=== PATIENT | male | born 1995 | race Caucasian/White ===

== ENCOUNTER 2016-03-24 17:29 | Inpatient (IN) | payer OTHER ==
--- NOTE | 2016-03-24 17:36 | EDPHY ---
H & P Time Seen by Provider: 03/24/16 17:35 Constitutional: Initial Vital Signs Temperature (C) 36.8 C 03/24/16 17:29 Heart Rate 75 03/24/16 17:29 Respiratory Rate 16 03/24/16 17:29 Blood Pressure 136/91 H 03/24/16 17:29 O2 Sat (%) 96 03/24/16 17:29 O2 Delivery Mode Room Air Allergies/Adverse Reactions: No Known Allergies Allergy (Unverified 03/24/16 17:39) Home Medications: Medication Instructions Recorded Zoloft 03/24/16 Medical Decision Making ED Course/Re-evaluation: CHIEF COMPLAINT: Psychiatric evaluation HISTORY OF PRESENT ILLNESS: The patient is a 21 y/o arriving on an M1 hold with "increasingly intense suicidal ideation" from [facility]. He has a history of depression and has been on Zoloft for 5 years. He feels like he is cycling between happiness and depression for the last week. He says, "I've been feeling suicidal for the past week; it's been bipolar I think so I went to the psychiatric services at school;" "I feel super happy on top of the world then depressed-suicidal every." He denies previous suicidal attempts. He has a family history of depression but no history of bipolar disorder. REVIEW OF SYSTEMS: A 10 point review of systems was performed and is negative with the exception of the elements mentioned in the history of present illness. PHYSICAL EXAM: General Appearance: Alert, well hydrated, appropriate, and non-toxic appearing. Head: Atraumatic without scalp tenderness or obvious injury Eyes: Pupils equal, round, reactive to light and accommodation, EOMI, no trauma , no injection. Ears: Clear bilaterally, no perforation, normal landmarks Nose: Atraumatic, no rhinorrhea, clear. Throat: There is no erythema or exudates, no lesions, normal tonsils, mucus membranes moist. Neck: Supple, 2+ carotid upstroke, nontender, no lymphadenopathy. Respiratory: No retractions, no distress, no wheezes, and no accessory muscle use. Lungs are clear to auscultation bilaterally. Cardiovascular: Regular rate and rhythm, no murmurs, rubs, or gallops. Bilateral carotid, radial, dorsalis pedis, and posterior tibial pulses intact. Good capillary refill all extremities. Gastrointestinal: Abdomen is soft, nontender, non-distended, no masses, no rebound, no guarding, no peritoneal signs. Musculoskeletal: Normal active ROM of all extremities, atraumatic. Neurological: Alert, appropriate, and interactive. The patient has normal DTRs and non-focal cranial nerves, motor, sensory, and cerebellar exam. Skin: No rashes, good turgor, no nodules on palpation. 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 MEDICAL DECISION MAKING: Patient is in no acute distress and is hemodynamically stable. We are awaiting psychiatric team's evaluation. Patient has known history of depression and is here for evaluation. - Data Points Laboratory Results: Laboratory Results 03/24/16 17:33 03/24/16 17:33 03/24/16 03/24/16 17:37 17:33 WBC 7.75 10^3/uL (3.80-9.50) RBC 5.32 10^6/uL (4.40-6.38) Hgb 17.2 g/dL (13.7-17.5) Hct 47.7 % (40.0-51.0) MCV 89.7 fL (81.5-99.8) MCH 32.3 pg (27.9-34.1) MCHC 36.1 g/dL (32.4-36.7) RDW 11.0 L % (11.5-15.2) Plt Count 236 10^3/uL (150-400) MPV 9.4 fL (8.7-11.7) Neut % (Auto) 63.3 % (39.3-74.2) Lymph % (Auto) 25.7 % (15.0-45.0) [place] % (Auto) 9.0 % (4.5-13.0) Eos % (Auto) 1.3 % (0.6-7.6) Baso % (Auto) 0.4 % (0.3-1.7) Nucleat RBC Rel Count 0.0 % (0.0-0.2) Absolute Neuts (auto) 4.91 10^3/uL (1.70-6.50) Absolute Lymphs (auto) 1.99 10^3/uL (1.00-3.00) Absolute Monos (auto) 0.70 10^3/uL (0.30-0.80) Absolute Eos (auto) 0.10 10^3/uL (0.03-0.40) Absolute Basos (auto) 0.03 10^3/uL (0.02-0.10) Absolute Nucleated RBC 0.00 10^3/uL (0-0.01) Immature Gran % 0.3 % (0.0-1.1) Immature Gran # 0.02 10^3/uL (0.00-0.10) Sodium 140 mEq/L (134-144) Potassium 4.0 mEq/L (3.5-5.2) Chloride 101 mEq/L (97-110) Carbon Dioxide 27 mEq/l (22-31) Anion Gap 12 mEq/L (8-16) BUN 14 mg/dL (7-23) Creatinine 0.9 mg/dL (0.7-1.3) Estimated GFR > 60 Glucose 93 mg/dL (70-100) Calcium 9.3 mg/dL (8.5-10.4) Urine Opiates Screen NEGATIVE (NEGATIVE) Urine Barbiturates NEGATIVE (NEGATIVE) Ur Phencyclidine Scrn NEGATIVE (NEGATIVE) Ur Amphetamine Screen NEGATIVE (NEGATIVE) U Benzodiazepines Scrn NEGATIVE (NEGATIVE) Urine Cocaine Screen NEGATIVE (NEGATIVE) U Marijuana (THC) Screen NON-NEGATIVE H (NEGATIVE) Ethyl Alcohol < 10 mg/dL (0-10) Departure - Departure Clinical Impression: Suicidal ideation Depression Qualifiers: Depression Type: major depressive disorder Major depression recurrence: recurrent Active/Remission status: currently active Major depression episode severity: severe Condition: Fair Report Scribed for: Acosta Talley Report Scribed by: Hui Bailey Date of Report: 03/24/16 Time of Report: 18:53
[2016-03-24 17:42] LABS: % IMMATURE GRANULYOCYTES 0.3 % (0.0-1.1); ABSOLUTE IMMATURE GRANULOCYTES 0.02 10^3/uL (0.00-0.10); ADD DIFF? NO; ADD MORPH? NO; ADD SCAN? NO; ATYPICAL LYMPHOCYTE FLAG 10 (0-99); FRAGMENT RBC FLAG 0 (0-99); HEMATOCRIT 47.7 % (40.0-51.0); HEMOGLOBIN 17.2 g/dL (13.7-17.5); LEFT SHIFT FLG 0 (0-99); LIPEMIA HEMOLYSIS FLAG 90 (0-99); MEAN CELL HEMOGLOBIN 32.3 pg (27.9-34.1); MEAN CELL HEMOGLOBIN CONCENTR. 36.1 g/dL (32.4-36.7); MEAN CELL VOLUME 89.7 fL (81.5-99.8); MEAN PLATELET VOLUME 9.4 fL (8.7-11.7); PLATELET CLUMPS FLAG 0 (0-99); PLATELET COUNT 236 10^3/uL (150-400); RED BLOOD CELL COUNT 5.32 10^6/uL (4.40-6.38)
[2016-03-24 18:06] LABS: ANION GAP 12 mEq/L (8-16); CALCIUM 9.3 mg/dL (8.5-10.4); CARBON DIOXIDE 27 mEq/l (22-31); CHLORIDE 101 mEq/L (97-110); CREATININE 0.9 mg/dL (0.7-1.3); ETHANOL SERUM < 10 mg/dL (0-10); GLOMERULAR FILTRATION RATE > 60; GLUCOSE 93 mg/dL (70-100); SODIUM 140 mEq/L (134-144)
[2016-03-24 21:21] LABS: ALBUMIN 4.7 g/dL (3.5-5.0); BILIRUBIN,TOTAL 0.7 mg/dL (0.1-1.4); BILIRUBIN-CONJUGATED 0.2 mg/dL (0.0-0.5); BILIRUBIN-UNCONJUGATED 0.5 mg/dL (0.0-1.1); TOTAL PROTEIN 7.9 g/dL (6.3-8.2)
[2016-03-25] MEDS ORDERED: MAG HYDROX/AL HYDROX/SIMETH 30 ML UDCUP PO PRN (00:20)
[2016-03-25] MEDS ORDERED: ACETAMINOPHEN 325 MG TAB PO PRN (00:20)
[2016-03-25] MEDS ORDERED: MAGNESIUM HYDROXIDE 30 ML UDCUP PO PRN (00:20)
[2016-03-25] MEDS ORDERED: NICOTINE POLACRILEX 2 MG GUM B PRN (00:20)
[2016-03-25] MEDS ORDERED: LORazepam 0.5 MG TAB PO PRN (00:20)
[2016-03-25] MEDS: MELATONIN 3 MG TAB PO PRN ×2 (01:28→22:35)
--- NOTE | 2016-03-25 07:38 | PDGENHP ---
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 He take Zoloft. He has not been diagnosed with bipolar, but recently has been having more severe mood swings, sometimes sleeping only an hour at a time, and worries he may have bipolar disorder. While on a recent trip to [place], he developed suicidal ideation and had thoughts of jumping off a tall building. He did not act on these impulses because he knew the feeling would pass, but his suicidal thinking has persisted. He has no past medical hx other than depression. He is admitted to the behavioral health unit for inpatient psychiatric evaluation and stabilization History Information - Allergies/Home Medication List Allergies/Adverse Reactions: No Known Allergies Allergy (Unverified 03/24/16 17:39) Home Medications: Zoloft 03/24/16 [Last Taken Unknown] I have personally reviewed and updated: family history, medical history, social history, surgical history - Past Medical History Additional medical history: depression - Surgical History Reports: no pertinent surgical hx - Family History Positive for: non-pertinent Additional family history: Mom and dad are alive and healthy - Social History Smoking Status: Current some day smoker Alcohol Use: Occasionally Drug Use: Other (occasional marijuana and psychedelics (acid, mushrooms). Denies IVDA. 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80-9.50) 03/24/16 17:33 RBC 5.32 10^6/uL (4.40-6.38) 03/24/16 17:33 Hgb 17.2 g/dL (13.7-17.5) 03/24/16: Hct 47.7 % (40.0-51.0) 03/24/16: MCV 89.7 fL (81.5-99.8) 03/24/16 17: MCH 32.3 pg (27.9-34.1) 03/24/16: MCHC 36.1 g/dL (32.4-36.7) 03/24/16: RDW 11.0 % (11.5-15.2) L 03/24/16: Plt Count 236 10^3/uL (150-400) 03/24/16: MPV 9.4 fL (8.7-11.7) 03/24/16: Neut % (Auto) 63.3 % (39.3-74.2) 03/24/16: Lymph % (Auto) 25.7 % (15.0-45.0) 03/24/16: [place] % (Auto) 9.0 % (4.5-13.0) 03/24/16: Eos % (Auto) 1.3 % (0.6-7.6) 03/24/16: Baso % (Auto) 0.4 % (0.3-1.7) 03/24/16: Nucleat RBC Rel Count 0.0 % (0.0-0.2) 03/24/16: Absolute Neuts (auto) 4.91 10^3/uL (1.70-6.50) 03/24/16 17: Absolute Lymphs (auto) 1.99 10^3/uL (1.00-3.00) 03/24/16: Absolute Monos (auto) 0.70 10^3/uL (0.30-0.80) 03/24/16: Absolute Eos (auto) 0.10 10^3/uL (0.03-0.40) 03/24/16 17: Absolute Basos (auto) 0.03 10^3/uL (0.02-0.10) 03/24/16:33 Absolute Nucleated RBC 0.00 10^3/uL (0-0.01) 03/24/16 17:33 Immature Gran % 0.3 % (0.0-1.1) 03/24/16 17:33 Immature Gran # 0.02 10^3/uL (0.00-0.10) 03/24/16 17:33 Sodium 140 mEq/L (134-144) 03/24/16 17:33 Potassium 4.0 mEq/L (3.5-5.2) 03/24/16 17:33 Chloride 101 mEq/L (97-110) 03/24/16 17:33 Carbon Dioxide 27 mEq/l (22-31) 03/24/16 17:33 Anion Gap 12 mEq/L (8-16) 03/24/16 17:33 BUN 14 mg/dL (7-23) 03/24/16 17:33 Creatinine 0.9 mg/dL (0.7-1.3) 03/24/16 17:33 Estimated GFR > 60 03/24/16 17:33 Glucose 93 mg/dL (70-100) 03/24/16 17:33 Calcium 9.3 mg/dL (8.5-10.4) 03/24/16 17:33 Total Bilirubin 0.7 mg/dL (0.1-1.4) 03/24/16 17:33 Conjugated Bilirubin 0.2 mg/dL (0.0-0.5) 03/24/16 17:33 Unconjugated Bilirubin 0.5 mg/dL (0.0-1.1) 03/24/16 17:33 AST 26 IU/L (17-59) 03/24/16 17:33 ALT 22 IU/L (21-72) 03/24/16 17:33 Alkaline Phosphatase 72 IU/L (38-126) 03/24/16 17:33 Total Protein 7.9 g/dL (6.3-8.2) 03/24/16 17:33 Albumin 4.7 g/dL (3.5-5.0) 03/24/16 17:33 TSH 1.790 uIU/mL (0.465-4.680) 03/24/16 17:33 Urine Opiates Screen NEGATIVE (NEGATIVE) 03/24/16 17:37 Urine Barbiturates NEGATIVE (NEGATIVE) 03/24/16 17:37 Ur Phencyclidine Scrn NEGATIVE (NEGATIVE) 03/24/16 17:37 Ur Amphetamine Screen NEGATIVE (NEGATIVE) 03/24/16 17:37 U Benzodiazepines Scrn NEGATIVE (NEGATIVE) 03/24/16 17:37 Urine Cocaine Screen NEGATIVE (NEGATIVE) 03/24/16 17:37 U Marijuana (THC) Screen NON-NEGATIVE (NEGATIVE) H 03/24/16 17:37 Ethyl Alcohol < 10 mg/dL (0-10) 03/24/16 17:33 Assessment & Plan Assessment: Depression (Acute) Suicidal ideation (Acute) Headache Inpatient psychiatry evaluation planned. Continue Zoloft for now. No other active medical issues other than a mild headache for which I'll prescribe tylenol.
[2016-03-25] MEDS: SERTRALINE HCL 100 MG TAB PO SCH (07:47)
[2016-03-26 06:31] VITALS: BP 96/53; PULSE 74; RESP 12; TEMP 97.6; O2SAT 97
--- NOTE | 2016-03-26 07:09 | SOAPPROG ---
[id number] Objective: Vital Signs Temp Pulse Resp BP Pulse Ox 36.4 C 74 12 96/53 L 97 03/26/16 06:30 03/26/16 06:30 03/26/16 06:30 03/26/16 06:30 03/26/16 06:30 - Pending Discharge Pending Discharge Within 24 Hours: Yes Pending Discharge Within 48 Hours: No Pending Discharge Date: 03/26/16 Pending Discharge Time: 17:00 ICD10 Worksheet Patient Problems: Problems Problem Status Diagnosed Depression Acute Suicidal ideation Acute
[2016-03-26] MEDS: SERTRALINE HCL 100 MG TAB PO SCH (09:01)
--- NOTE | 2016-03-26 16:39 | SOAPPROG ---
[id number] Objective: Vital Signs Temp Pulse Resp BP Pulse Ox 36.4 C 74 12 96/53 L 97 03/26/16 06:30 03/26/16 06:30 03/26/16 06:30 03/26/16 06:30 03/26/16 06:30 ICD10 Worksheet Patient Problems: Problems Problem Status Diagnosed Depression Acute Suicidal ideation Acute
--- NOTE | 2016-03-27 02:38 | BAPA ---
[f rep st] ADMISSION PSYCHIATRIC ASSESSMENT DATE OF SERVICE: 03/25/2016 CHIEF COMPLAINT: "I'm here because I was having thoughts of suicide and contemplating ways to do it." HISTORY OF PRESENT ILLNESS: Patient is a 21-year-old, single, male, [employer] student placed on an M1 hold by the [facility] due to suicidal ideation with plan. Patient had several different plans, thinking about hanging, poison, jumping, using a gun, but did not take any steps in attempting to seek out or secure any such items. He reports feeling his suicidal thoughts that were more intense than he had in the past, which concerned him, so he sought help. Per M1 hold, the patient reported feeling his suicidal ideation was overpowering his ability to contract for safety. He reported exacerbation of depression, anxiety, and suicidal ideation on and off for the past 2 weeks due to stress related to whether he should take a semester off or return to school. 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 On interview, patient reported feeling that over the past couple of months, for 2-3 days he would feel very happy, then have a normal week, then experience 2-3 days of feeling depressed. He attributed his emotional ups and downs in part to feelings about his girlfriend breaking up with him about 1 year ago, and his unsuccessful attempt to reunite with her last summer. He also admitted to marijuana use as a possible contributing factor to his moods, and his ambivalence about taking classes this spring. He talked about his break -up last year, at the time feeling he "did not care" and "got a new girlfriend right away," but when he returned home to [place] last summer 2015, he began "thinking about her a lot", and when he attempted to reconnect with her, she had already had a new boyfriend and was not interested. He then returned to [place]. He decided to not return to school for Fall 2015 sem, left his job, and biked from [place] to [place]. "I got the idea that this would be a romantic thing to do," in order to get his girlfriend back. During this bike trip, he said he felt "healthy and happy," mood was stable, sleep was normal about 8-9 hours per night, he enjoyed meeting new people, and stayed either with people who opened their home to adventurers like him or just slept outside as the weather allowed. H denied reckless behaviors, or excessive spending, stating he put himself on a budget for the trip and was able to maintain within it. Only 1 night during this 1000 mile bike ride did he report feeling depressed and thinking this would not work to get his girlfriend back. When he felt this way that one night, he admitted having passive suicidal ideation, stating he hoped for a motor vehicle accident, but did not attempt to cause one or harm himself in any way. He did journal, which helped. Over the past few months, he found himself having suicidal ideations if he experienced a negative event or if his self confidence was decreased. Historically, he reports having coped with suicidal ideation by contacting friends or family. After this bike trip, and not being able to get back together with his ex-girlfriend, he reports seeking outpatient therapy in [place] and went 5-6 times. After returning to [place] in Fall, he got a job in [employer]. These were 12 hours shifts. He quit his job and returned to [place] for the Holidays. He has just recently returned to [place] and registered for Spring classes but was not sure if he should do so or not. He elaborated that his mood symptoms may actually have been present for the past 10 months, and that depression periods could last up to 4-5 days, then he would feel normal with no past history of manic or hypomanic symptoms until possibly more recently, wondering whether he was experiencing some jayne over the past week because of feeling very happy with racing thoughts and decreased sleep (2-3 hours), but states this only lasted for 1-2 days and patient did feel tired when he would not have sleep. He denied any reckless behavior, excessive spending, hypersexual behavior, or any irritability or distractibility. He endorsed depressed mood, mild anhedonia, decreased concentration, normal appetite, 2 nights over past week with difficulty sleeping. He denied any history of psychotic symptoms, denied any PTSD or panic symptoms. PAST PSYCHIATRIC HISTORY: Denied previous inpatient psychiatric hospitalization , however was briefly in rehab for marijuana use at age 15. Was started on Zoloft 100 mg at age 15 and has been on this ever since. He does report periods of tapering Zoloft but failed and depression would inevitably return. At age 15, he felt depressed with low self-esteem and was using marijuana, and he texted suicidal ideations to his mother. He felt perhaps an additional trigger at that time was "being on cough syrup." Thought at that time he may have been using marijuana to self medicate depression. No other psychiatric medications. Locally, he did see a therapist at [facility] named Robert Booth last summer, for 4-5 sessions. He felt connected with him and is interested in returning. Psychiatrist in [place], Dr. Gannon, last saw approximately 6 months ago and has been prescribing Zoloft. Patient was also seeing a therapist in [place] which was helpful. He does not have a psychiatrist in [place]. SAFETY: Patient denied any history of suicide attempts. He did experience first suicidal thought at age 15. Patient has had past suicidal ideation "come and go", he admits often related to his confidence or self-esteem, and only lasting briefly. The "closest" that he has come to acting on suicidal ideation was 03/14/2016 on his birthday when he went with parents to [place] to celebrate. He did report drinking on his 21st birthday but reports only 1 drink. He chose not to join parents for dinner, asking for some alone time, and went to lie in bed in hotel room. At this time, he reports onset of suicidal ideation, having thoughts to jump from the 20+ story window. He reports suicidal ideations were "intense" for 15-20 minutes and this surprised him that it lasted so long, and that he found himself fantasizing without feeling scared. He reports he never even got out of bed to approach window or even look out or try to open it, or take any other steps to act on his thoughts. He denied any history of harm to others or thoughts to do so. SUBSTANCE USE HISTORY: At age 15, rehab for marijuana use. History of social alcohol since age 15, currently drinking approximately 2-3 times per month. He denied history of alcohol withdrawal symptoms or tolerance. THC use since age 15. Last alcohol use on his birthday almost 2 weeks ago. Occasional use of hallucinogenics, started a couple of years ago, uses perhaps twice a year. Last used LSD 2 months ago, and mushrooms 8 months ago in attempts "to feel better." States hallucinogenics "give me a positive outlook on life." Longest period of sobriety and clean from all substances is in high school after his diagnosis of depression at age 15 and after rehab. He maintained off any substances or alcohol for 1-1/2 years and changed his group of friends. He reports periods of abstinence for shorter time periods since, approximately 1 month. Describes his substance use patterns as using marijuana 2-5 times per week for 1 month, then begins thinking about the negative effects and the fact that he could easily feel addicted to this, which scares him, then he stops using for 1 month. Also states if he feels depressed, he will stop marijuana and alcohol because wonders whether it is related. Isn't sure if it is or not. Approximately twice per year, he drinks alcohol to intoxication. 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 He took last semester off but is registered for classes this semester with a goal toward obtaining an electrical engineering degree. Admits academic stress has been trigger of increased depression, suicidal ideation, and anxiety, as well as ex-girlfriend loss issues. Patient currently resides with 2 roommates in an apartment near [facility]. Good supportive relationship with roommates. Never . No children. One roommate was with patient at bedside while in the ED. Mother is en route from [place] to [place] to provide additional support. Leisure activities include exercise, reading and watching television. Grew up near [place] in [facility]. He has 1 younger sister. Parents are together and his 19 year old sister lives with them in [place]. Patient reports good support from a few close friends, and reports his family is very supportive of him. 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 Worked in [employer] at [employer] before leaving for holiday 2015. FAMILY PSYCHIATRIC HISTORY: Maternal grandmother had depression. Maternal great -grandmother was with alcohol dependency. PAST MEDICAL HISTORY: Unremarkable except for a history of several closed head injuries, one at 14 as a result of boxing. He denied loss of consciousness but wonders whether this was related to his subsequent diagnosis of depression and anxiety 1 year later. Has been diagnosed with at least 1 concussion. About 1 year ago while ice skating, he fell and struck the back of his head on ice, with a brief moment of experiencing "everything went black." Did not receive any formal evaluation for either head injury. Denied any cognitive or physical sequelae to his reported head injuries. DEVELOPMENTAL HISTORY: Denied any learning difficulties or special education classes. Denied any childhood history of psychological, emotional, or physical abuse or sexual abuse. MENTAL STATUS EXAMINATION: On admission, patient was neatly groomed, casually dressed, normal psychomotor activity. Good eye contact, wearing glasses. Normal speech rate and volume. Mood was depressed. Affect was constricted. Thought processes were linear, goal directed, logical. Thought content: Denied any psychotic symptoms. No thoughts to harm others. He denied having suicidal ideation at time of admission evaluation, but did report having had suicidal ideation recently. No current plan or intent to harm self. [place] he could be safe on the unit. Insight was good. Judgment was good. Cognition intact. Alert and oriented x4. 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 No attempts or intent to carry out plans, and no current suicidal ideation, but concerned about his recent increase in suicidal thoughts and depression, and has concerns about his mood swings over the past 2 weeks, which he thinks may have been present for a few months. List several psychosocial stressors contributing. Patient had expressed concerns about mood instability, although based on his provided history and symptoms, does not clearly meet any criteria for bipolar I disorder or a manic episode. At best, with hypomanic episodes lasting no more than 2 days and depression episodes lasting from 2-4 days more intensely recently than his previous experienced depression. He does endorse marijuana use , occasional alcohol, and infrequent hallucinogenic use. He admitted maintaining abstinence for periods to test whether moods were affected by substances, noting this was a factor. He reported having concerns about recent brief periods of hypomania for 2 days then depression, but also admitted over the past week, he has been stressed trying to decide what to do about school, feeling pressure to continue with classes, recent back and forth traveling between [place] and family in [place] over the last few months which didn't help him feeling settled, and also continuing to have some emotional loss issues around his girlfriend. PLAN: Patient continued on M1 hold. He was on suicide precautions but did agree he could maintain safety and was with no plans or intent to harm himself on the unit. He was very receptive to education about bipolar mood disorder symptoms/criteria and medication options. [place] or Depakote low dose were discussed as possible options for his reported mood instability even though he did not meet the criteria for bipolar disorder, but bipolar type II or rapid cycling could be considered and need to be monitored for, ideally in absence of substance use. Concerns for Zoloft effects on mood were addressed, including risk of antidepressant use in bipolar spectrum disorders including worsening, mood cycling, more severe depression, and mixed states. Education on effects of substance use on mental health symptoms was also discussed. Additionally, head trauma history and possible effects on mood were addressed. There is no bipolar in the family, but there is substance use and depression. He was provided with reading material including book "Suicide Forever," which he had already started reading at time of interview, and so far was finding information helpful. Plan to continue Zoloft 100 mg p.o. daily for now. Patient was reluctant to make medication changes after only one interview, and wanted to consider his options and educate himself further. Most consistently reported depression would return and worsen when historically he tapered off Zoloft. Would like reading material on Depakote and lithium as well as bipolar mood disorder, which was provided by staff. Patient also was provided with a safety plan to complete. Self-stated hospital goals were "to take a breather," and "figure out next steps". Accepted offer of p.r.n. medication for sleep, Diphenhydramine. ADMISSION DIAGNOSES: 1. Major depression, recurrent, severe, with suicidal ideation. Rule out unspecified bipolar mood disorder. 2. Cannabis use disorder, unspecified. /[id number]
--- NOTE | 2016-03-29 15:57 | BDS ---
[ rep ] BEHAVIORAL HEALTH DISCHARGE SUMMARY CHIEF COMPLAINT: "I was having thoughts of suicide and contemplating ways to do it." HISTORY OF PRESENT ILLNESS: Patient is a 21-year-old, single male, [employer] student, placed on an M1 hold by the [facility] due to suicidal ideation with plan varying from hanging, poison, jumping, or using a gun. He presented voluntarily to the clinic for help. Per M1 hold, patient was beginning to feel like his suicidal ideation was overpowering his ability to contract for safety. He also complained of exacerbation of depression, anxiety, suicidal ideation, and possible brief manic episodes within the past 2 weeks due to stress. He reported stress was wondering about taking a semester off, returning to school; also, he thought an additional stressor was breakup with his girlfriend last summer. He has been on Zoloft 100 mg daily since age 15, prescribed for depression, SI, anxiety. He had no prior suicide attempts. Patient also reported history of marijuana use since age 15, but also episodic LSD, mushrooms, and other hallucinogens. Occasional alcohol use, most recently on his 21st birthday, 03/14/2016, while on vacation in [place] with his parents. Does have a family history of depression and substance use. He reported, in the past 2 months, if he experienced a negative event or stressor or low self-confidence, he would have suicidal ideation. He reports no steps toward carrying out any plans nor access to weapons, and the closest he has ever come to attempting suicide was lying in bed in his hotel room when in [place], and just imagining jumping from his hotel window. He reports lying in bed thinking this way for approximately 15-20 minutes, but never got up to even look out of the window or check to see if it could open. He expressed concerns about having such thoughts for that period of time, fantasizing and not feeling afraid. ADMISSION DIAGNOSES: Major Depressive disorder, recurrent, severe with suicidal ideation; Rule out bipolar mood spectrum disorder, unspecified; Cannabis use disorder, unspecified. DISCHARGE DIAGNOSES: Major depressive disorder, recurrent, moderate Suicidal ideation, resolved Rule out bipolar spectrum disorder, unspecified, rule out bipolar type 2 disorder, rule out substance-induced mood disorder; Cannabis use disorder, unspecified. HOSPITAL COURSE: PSYCHIATRIC: Patient was admitted on M1 hold and placed on suicide precautions , and admitted to [address] [place] [address]. He continued on Zoloft 100 mg daily as prior to admission. He remained safe throughout hospital stay, cooperative, visible in the milieu, attending groups. He read provided reading material including Suicide is Forever book, and completed a safety plan, both of which he found helpful. The book helped him reflect on the effects suicide would have on loved ones around him, which was poignant to him. While on unit, he was in contact with family for support, and his mother arrived from [place] , coming to visit on the unit, which patient found supportive. Patient was educated on symptoms of major depression versus bipolar mood disorder, manic versus hypomanic episodes, as well as substance use (THC, alcohol, hallucinogenics) effects on mental status, mood and other psychiatric symptoms. Also discussed medication options, including risks of antidepressant medication causing worsening if, in fact, he was having early symptoms of underlying bipolar mood disorder, and potential benefits of mood stabilization medication such as Berthold and Depakote. Also addressed history of concussion and mild traumatic brain injury lesser contribution to any mood symptoms. Mother came to visit on the unit, 03/26/2016, and education was again done with her (with patient consent) about patient's reported symptoms, history and presentation, stressors precipitating mood symptoms, and medication options . Patient reported consistently no suicidal ideation during his hospital stay. He did talk about what he felt had been helpful on an outpatient basis in the past, most notably engaging in therapy. He reports having seen a therapist at [facility] anne Gonzalez several times last summer, and would like to return to start seeing him regularly. Also, agreed to establish with a psychiatrist for further medication management and ongoing evaluation. Patient did not want to make any medication changes on the unit during what he hoped was just a brief hospital stay, and he expressed understanding of the risks and benefits. He preferred to reengage with therapy and "to pay closer attention" to his moods, the patterns, the triggers, and also its relationship with his substance use. He demonstrated much insight into his substance use, and noted several attempts in the past to self-regulate his mood by abstaining from substances. Notably, if he felt depressed, he would abstain from marijuana , however, patterns were not very clear, nor has there been a significant period of abstinence to determine effect on mood, plus he also reports a big emotional stressor over the past year was the breakup with girlfriend. [place] ride [place] last Fall in lieu of registering for fall classes, he consistently denied any symptoms that would be suggestive of jayne, or hypomania, as noted in Admission Psychiatric Assessment (refer to for details ). The patient also again related a history of several prior attempts to taper down off Zoloft when feeling mood was more stable, but felt consistently that depressive symptoms returned, necessitating his resuming current Zoloft dosing. Mother plans to staying with the patient for the next several days, to ensure he has adequate support, maintains safety, and follows up with mental health treatment recommendations of resuming therapy and establishing with a psychiatrist at [facility]. Both mother and patient were provided with information about this and IOP services at [facility]. He reported knowing that the Walk[facility]in Clinic was accessible to him at [facility], and if he could not make an appointment soon with his therapist, Carlos, then he would utilize the Walk-in Clinic. He expressed a desire for discharge on 03/26/2016, as he was registered for classes and wanted to attend them on Sunday. He felt, without suicidal ideation, that hospitalization was helpful in providing him some space for "self reflection, and rest". He did not feel convinced of a bipolar mood disorder spectrum diagnosis, but was willing to continue to explore this as an outpatient. He agreed to completely remain abstinent from any marijuana, hallucinogenics, or alcohol, at least for perhaps until spring or for the semester, to allow himself to clarify diagnosis and also separate effects of substances on his mood. He felt that, because he had so much instability regarding work, move, leaving home, loss of girlfriend, trying to figure out if he was going to take classes again, being away from parents, he felt that this instability was a significant contributor to his mood fluctuations. Additionally, patient reported benefits of brief hospitalization were "reading the book" about suicide, "doing the work sheet" (Safety Plan), and "knowing [facility] is a resource," stating that he did not even realize being hospitalized was an option there that could be easily accessed if he did not feel safe. Also, he felt his supports after discharge, that his roommate would be home, and his mother, having his mother come from [place] and stay with him was a big support , he felt. What was different on discharge, "I do not have any suicidal thoughts," and stated he learned that, although suicide could be a solution to all of his problems, "it was not the best solution", preferentially desiring to "focus on spirituality, relationships, and finding a motivation now" for continuing to pursue his academics, and "finding a purpose in the world, to make a difference in the world," "grow my passion for engineering," perhaps ultimately join a "think tank or get involved in legislature." He does acknowledge he has periods of feeling super passionate emotionally, but tries to balance this with his self description of being "super logical." He did feel very much that he connected with his therapist, Carlos, at [facility], this being "one of the reasons I wanted to come back (to )." He really liked his style of therapy, which was more of a Prosper type, mindfulness technique. Patient planned to go to walk-in hours at [facility] if he was not able to schedule with therapist Carlos this week, and he does plan to attend his classes on Sunday , having 3 classes, at 9 a.m., 10 a.m., and 2 p.m. He agreed that he could seek services again through [facility] or call a crisis line, or return to the emergency room if he did not feel safe or have recurring suicidal ideations. He also agreed to follow up with a psychiatrist to have his medications prescribed locally instead of, as previously, his psychiatrist in [place]. Consideration will be given to further adjustments in Zoloft, or addition of mood stabilizer or change of medication regimen accordingly. Presently, no medication changes were made as they were not indicated. He did not meet clear criteria for any manic or hypomanic episode, and patient also did not want to make any med changes while in the hospital. MEDICAL: There were no acute medical issues throughout hospital stay. DISCHARGE MENTAL STATUS EXAMINATION: On discharge, patient was casually dressed. Good eye contact. Wearing glasses. Calm, cooperative, articulate. Normal speech rate and volume. Mood was "better." Affect was congruent, euthymic. There was no evidence of thought disorder, no psychosis. Patient denied any suicidal ideation, passive or active, and denied any thoughts to harm others. He expressed good insight and judgment, he was alert and oriented x4, future thinking and expressing motivation for continued outpatient treatment. DISCHARGE PLAN: Continue current medication, Zoloft 100 mg daily. Plan to return to [facility] for outpatient therapy with Carlos. Also plans to utilize walk-in mental health services for an appointment this week if no others are available with desired therapist. Patient will need to schedule with psychiatrist at [facility] to follow up with medications and continued medication evaluation. Patient is excited to also attend a meditation group weekly on campus which he found out about and feels would be very helpful for him. Also, he was provided with emergency crisis numbers, and information for the [facility] counseling program, the intensive outpatient treatment if he desired. Abstinence from marijuana, hallucinogens, and alcohol is strongly recommended, and patient agreed. He was felt safe for discharge, and M1 hold was terminated at time of discharge. Patient was discharged with his mother who will stay with him for several days and provide support, and help ensure patient will continue with follow up recommendations. /[id number]/MODL MTDD
== END 2016-03-26 17:23 | disposition home or self-care (01) | DRG 885 ==
LOC: EEVIPCON 17:29 → BBEH 03-25
PROVIDERS: ADMIT Psychiatry & Neurology Behavioral Neurology & Neuropsychiatry; ATTEND Psychiatry & Neurology Behavioral Neurology & Neuropsychiatry
DX: F33.2 Major depressive disorder, recurrent severe without psychotic features (principal); R45.851 Suicidal ideations; F12.90 Cannabis use, unspecified, uncomplicated
CPT/HCPCS: 80305; G0480

== ENCOUNTER 2017-01-10 19:14 | Emergency (ER) | payer OTHER ==
[2017-01-10 19:29] VITALS: RESP 16
[2017-01-10 20:31] LABS: % IMMATURE GRANULYOCYTES 0.4 % (0.0-1.1); ABSOLUTE IMMATURE GRANULOCYTES 0.03 10^3/uL (0.00-0.10); ADD DIFF? NO; ADD MORPH? NO; ADD SCAN? NO; ATYPICAL LYMPHOCYTE FLAG 0 (0-99); FRAGMENT RBC FLAG 0 (0-99); HEMATOCRIT 46.8 % (40.0-51.0); HEMOGLOBIN 16.9 g/dL (13.7-17.5); LEFT SHIFT FLG 0 (0-99); LIPEMIA HEMOLYSIS FLAG 90 (0-99); MEAN CELL HEMOGLOBIN 33.1 pg (27.9-34.1); MEAN CELL HEMOGLOBIN CONCENTR. 36.1 g/dL (32.4-36.7); MEAN CELL VOLUME 91.6 fL (81.5-99.8); MEAN PLATELET VOLUME 9.7 fL (8.7-11.7); PLATELET CLUMPS FLAG 0 (0-99); PLATELET COUNT 207 10^3/uL (150-400); RED BLOOD CELL COUNT 5.11 10^6/uL (4.40-6.38); RED CELL DISTRIBUTION WIDTH 11.5 % (11.5-15.2)
[2017-01-10 20:38] LABS: ANION GAP 15 mEq/L (8-16); CALCIUM 9.4 mg/dL (8.5-10.4); CARBON DIOXIDE 23 mEq/l (22-31); CHLORIDE 101 mEq/L (97-110); CREATININE 1.2 mg/dL (0.7-1.3); GLOMERULAR FILTRATION RATE > 60; GLUCOSE 88 mg/dL (70-100); POTASSIUM 4.2 mEq/L (3.5-5.2); SODIUM 139 mEq/L (134-144)
[2017-01-10] MEDS ORDERED: IOPAMIDOL (ISOVUE-300) 100 ML BTL ONE (20:45)
[2017-01-10] MEDS ORDERED: FAMOTIDINE 20 MG/2 ML SDV ONE (21:07)
[2017-01-10] MEDS ORDERED: FAMOTIDINE 20 MG/NACL 50 ML IV ONE (21:11)
[2017-01-10 21:15] VITALS: O2SAT 94
--- NOTE | 2017-01-10 22:11 | EDPHY ---
H & P Time Seen by Provider: 01/10/17 20:23 HPI/ROS: CHIEF COMPLAINT: Left upper quadrant abdominal pain HISTORY OF PRESENT ILLNESS: 21-year-old male presents to the emergency department with left upper quadrant abdominal pain. The patient is concerned about possible splenic injury. Patient was diagnosed with mono 1 month ago and today around 6:30 p.m. he was lifting weights, specifically doing a lift and when he was picking the bar up he felt immediate pain in his left upper quadrant. The incident happened approximately 2 hours prior to arrival. He denies feeling short of breath or have any other chest pain. No back pain. No nausea or vomiting. No diarrhea. No other blunt abdominal trauma. REVIEW OF SYSTEMS: Constitutional: No fever, no chills. Eyes: No double or blurry vision. ENT: No sore throat. Respiratory: No cough, no shortness of breath. Cardiac: No chest pain. Gastrointestinal: Abdominal pain as above. No vomiting or diarrhea. Genitourinary: No dysuria. Musculoskeletal: No neck or back pain. Skin: No rashes. Neurological: No headache. 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 Eyes: [Pupils equal and round. Extraocular motions are all intact.] ENT: [Mouth: Mucous membranes moist.] Respiratory: [No wheezing, rhonchi, or rales, lungs are clear to auscultation.] Cardiovascular: [Regular rate and rhythm.] Gastrointestinal: Abdomen is soft. Mild tenderness with palpation in the left upper quadrant. There is no rebound, guarding or masses noted. No CVA tenderness bilaterally. Nontender to palpate in the right upper quadrant. Specifically no evidence of hepatosplenomegaly. Neurological: [Alert and oriented x 3, cranial nerves II through XII grossly intact] Skin: [Warm and dry, no rashes.] Musculoskeletal: [Nontender to palpate along the cervical, thoracic or lumbar spine. Neck is supple.] Extremities: [Full range of motion and no peripheral edema.] Psychiatric: [Patient is oriented X 3, there is no agitation.] Constitutional: Initial Vital Signs Temperature (C) 36.8 C 01/10/17 19:27 Heart Rate 69 01/10/17 19:27 Respiratory Rate 16 01/10/17 19:27 Blood Pressure 128/90 H 01/10/17 19:27 O2 Sat (%) 96 01/10/17 19:27 O2 Delivery Mode Room Air Allergies/Adverse Reactions: clindamycin Allergy (Verified 01/10/17 19:26) Iodinated Contrast- Oral and IV Dye Allergy (Verified 01/10/17 21:20) Home Medications: Medication Instructions Recorded Sertraline HCl [Zoloft 100mg (*)] 100 mg PO DAILY 03/25/16 Wellbutrin 100mg (*) 01/10/17 Medical Decision Making - Diagnostics Imaging Results: Imaging Impressions Abdomen CT 01/10/17 21:19 Impression: 1. Normal-sized spleen. No splenomegaly or evidence of acute splenic injury. 2. No abdominal wall hematoma, fracture, or solid organ injury. Findings discussed with Emergency Department physician, Maggie Cartagena MD, on 01/10/2017, 21:36. ED Course/Re-evaluation: 21-year-old male presents to the emergency department with left upper quadrant abdominal pain. The patient is concerned about splenic injury after lifting weights. I discussed the pros and cons of CT imaging of his abdomen and pelvis including radiation exposure the patient agrees with CT scan. CT imaging is normal. The patient was reassured. He was still given the same precautions about no contact sports until cleared by his primary care provider. Was also instructed to return to the emergency department if he developed worsening abdominal pain or any other concerns. Differential Diagnosis: Including but not limited to splenic infarct, splenic laceration, intra- abdominal injury, contusion - Data Points Laboratory Results: Laboratory Results 01/10/17 19:55 01/10/17 19:55 01/10/17 01/10/17 19:55 19:55 WBC 7.73 10^3/uL 10^3/uL (3.80-9.50) RBC 5.11 10^6/uL 10^6/uL (4.40-6.38) Hgb 16.9 g/dL g/dL (13.7-17.5) Hct 46.8 % % (40.0-51.0) MCV 91.6 fL fL (81.5-99.8) MCH 33.1 pg pg (27.9-34.1) MCHC 36.1 g/dL g/dL (32.4-36.7) RDW 11.5 % % (11.5-15.2) Plt Count 207 10^3/uL 10^3/uL (150-400) MPV 9.7 fL fL (8.7-11.7) Neut % (Auto) 65.7 % % (39.3-74.2) Lymph % (Auto) 21.0 % % (15.0-45.0) [place] % (Auto) 10.9 % % (4.5-13.0) Eos % (Auto) 1.6 % % (0.6-7.6) Baso % (Auto) 0.4 % % (0.3-1.7) Nucleat RBC Rel Count 0.0 % % (0.0-0.2) Absolute Neuts (auto) 5.09 10^3/uL 10^3/uL (1.70-6.50) Absolute Lymphs (auto) 1.62 10^3/uL 10^3/uL (1.00-3.00) Absolute Monos (auto) 0.84 10^3/uL H 10^3/uL (0.30-0.80) Absolute Eos (auto) 0.12 10^3/uL 10^3/uL (0.03-0.40) Absolute Basos (auto) 0.03 10^3/uL 10^3/uL (0.02-0.10) Absolute Nucleated RBC 0.00 10^3/uL 10^3/uL (0-0.01) Immature Gran % 0.4 % % (0.0-1.1) Immature Gran # 0.03 10^3/uL 10^3/uL (0.00-0.10) Sodium 139 mEq/L mEq/L (134-144) Potassium 4.2 mEq/L mEq/L (3.5-5.2) Chloride 101 mEq/L mEq/L (97-110) Carbon Dioxide 23 mEq/l mEq/l (22-31) Anion Gap 15 mEq/L mEq/L (8-16) BUN 21 mg/dL mg/dL (7-23) Creatinine 1.2 mg/dL mg/dL (0.7-1.3) Estimated GFR > 60 Glucose 88 mg/dL mg/dL (70-100) Calcium 9.4 mg/dL mg/dL (8.5-10.4) Medications Given: Discontinued Medications Diphenhydramine HCl (Benadryl Injection) 25 mg IVP EDNOW ONE Stop: 01/10/17 21:12 Last Admin: 01/10/17 21:16 Dose: 25 mg Famotidine/Sodium Chloride (Pepcid 20 Mg (Premix)) 50 mls @ 200 mls/hr IV EDNOW ONE Stop: 01/10/17 21:25 Last Admin: 01/10/17 21:16 Dose: 50 mls Departure - Departure Disposition: Home, Routine, Self-Care Clinical Impression: History of mononucleosis Abdominal pain Qualifiers: Abdominal location: left upper quadrant Qualified Code(s): R10.12 - Left upper quadrant pain Condition: Good Instructions: Mononucleosis (ED), Acute Abdominal Pain (ED) Additional Instructions: No contact sports until your fatigue has completely resolved and you have no abdominal pain. You should also be cleared by a primary care provider before returning to activities. Abdominal Pain: Return to the Emergency Department immediately for increasing pain, fever, vomiting, or if not completely better in 8-12 hours. Referrals: [facility]ACK[facility] Adame,. [Clinic] - As per Instructions Eb Crook MD [Medical Doctor] - As per Instructions (Primary care provider health information director)
[2017-01-10 22:25] VITALS: BP 118/74; PULSE 62; TEMP 99
== END 2017-01-10 22:24 | disposition home or self-care (01) ==
DX: R10.12 Left upper quadrant pain (principal); Z86.19 Personal history of other infectious and parasitic diseases; Z87.891 Personal history of nicotine dependence
CPT/HCPCS: 96374; J1200; Q9967

== ENCOUNTER 2018-04-27 15:25 | Emergency (ER) | payer OTHER ==
[2018-04-27] MEDS ORDERED: ONDANSETRON 4 MG/2 ML VIAL ONE (15:39)
[2018-04-27] MEDS ORDERED: NS 1,000 ML IV ONE (15:45)
[2018-04-27] MEDS ORDERED: ONDANSETRON 4 MG/2 ML VIAL IVP ONE (15:45)
--- NOTE | 2018-04-27 15:48 | EDPHY ---
H & P Stated Complaint: l lower abd pain Time Seen by Provider: 04/27/18 15:45 HPI/ROS: HPI: This is a 23-year-old male who presents with Chief Complaint: Left lower abdominal pain Location: Left lower abdomen Quality: Pain Duration: 48 hr Signs and Symptoms: no fever, + nausea, + vomiting, no hematemesis, no blood in stool, no abdominal bloating, no diarrhea, no back pain, no urinary symptoms, no testicular/groin pain, no indigestion, no chest pain, no shortness of breath Timing: Acute, worsening Severity: Moderate Context: Patient presents with 48 hr history of left lower abdominal pain that has slowly worsened within the last 6 hr accompanied by nausea and 1 episode of vomiting. Patient reports that he was at the coffee house drinking tea and had a muffin yesterday around 12 noon. Approximately 1 hr later around 1:00 p.m. Patient started to developed a left-sided lower quadrant abdominal pain that is nonradiating in nature. He reports a decreased appetite but eating and drinking without difficulty. He has no fevers, back pain, testicular groin pain , urinary symptoms. Reports he has daily bowel movements. Modifying Factors: No [id number] pain medications tried Comment: ROS: A comprehensive 10 system review of systems is otherwise negative aside from elements mentioned in the history of present illness. MEDICAL/SURGICAL/SOCIAL HISTORY: Medical history: Depression, suicidal ideation Surgical history: Denies Social history: Current every day smoker. Denies any drug use. Family history noncontributory. CONSTITUTIONAL: Flat affect, nontoxic appearance, young adult white male, awake and alert, no obvious distress HEENT: Atraumatic and normocephalic, PERRL, EOMI. Nares patent; no rhinorrhea; no nasal mucosal edema. Tympanic membranes clear. Oropharynx clear, no exudate and moist pink mucosa. Airway patent. No lymphadenopathy. No meningismus. Cardiovascular: Normal S1/S2, regular rate, regular rhythm, without murmur rub or gallop. PULMONARY/CHEST: Symmetrical and nontender. Clear to auscultation bilaterally. Good air movement. No accessory muscle usage. ABDOMEN: Soft, nondistended, moderate tenderness to deep palpation in the left lower quadrant and right lower quadrant, no rebound, no guarding, no peritoneal signs, no masses or organomegaly. No CVAT. EXTREMITIES: 2/2 pulses, strength 5/5, no deformities, no clubbing, no cyanosis or edema. NEUROLOGICAL: no focal neuro deficits. GCS 15. SKIN: Warm and dry, no erythema. no rash. Good capillary refill. Source: Patient Exam Limitations: No limitations - Personal History Current Tetanus Diphtheria and Acellular Pertussis (TDAP): No - Medical/Surgical History Hx Asthma: No Hx Chronic Respiratory Disease: No Hx Diabetes: No Hx Cardiac Disease: No Hx Renal Disease: No Hx Cirrhosis: No Hx Alcoholism: No Hx HIV/AIDS: No Hx Splenectomy or Spleen Trauma: No Other PMH: Depression, suicidal ideation - Social History Smoking Status: Current every day smoker Constitutional: Initial Vital Signs Temperature (C) 36.3 C 04/27/18 15:29 Heart Rate 88 04/27/18 15:29 Respiratory Rate 16 04/27/18 15:29 Blood Pressure 118/62 04/27/18 15:29 O2 Sat (%) 98 04/27/18 15:29 O2 Delivery Mode Room Air Allergies/Adverse Reactions: clindamycin Allergy (Verified 04/27/18 15:27) Iodinated Contrast- Oral and IV Dye Allergy (Verified 04/27/18 15:27) Home Medications: Medication Instructions Recorded Wellbutrin 100mg (*) 01/10/17 Dicyclomine [Bentyl 20 MG (*)] 20 mg PO QID PRN #12 tab 04/27/18 Lamotrigine 04/27/18 Ondansetron Odt [Zofran Odt 4 mg 4 mg PO Q4 PRN #12 tab 04/27/18 (*)] Medical Decision Making - Diagnostics Imaging Results: Imaging Impressions Abdomen/Pelvis CT 04/27/18 15:45 Impression: 1. No acute localizing abdominal or pelvic abnormality. 2. Mildly enlarged right lower quadrant lymph nodes could reflect mesenteric adenitis or represent normal variant. 3. See above report for additional findings. Results called and discussed with Tereza CONLEY on 04/27/2018 at 16:31. ED Course/Re-evaluation: Vital signs reviewed and in stable upon arrival. No systemic signs. IV access, laboratory studies, urinalysis, urine drug screen, CT abdomen and pelvis scan without contrast due to IV dye and oral contrast allergy noted Given 1 L normal saline, IV Zofran, IV Toradol 30 mg 1630: Laboratory studies reviewed. WBC 19 K with left shift, creatinine 1.1. No signs of anemia/platelet dysfunction/REYNOLD/elevated LFTs/electrolyte imbalance/ pancreatitis. 1632: Called by Dr. Rodriguez who reports CT abdomen and pelvis scan shows no acute abdominal process. No signs of appendicitis, diverticulitis, obstruction , colitis. Food Science Technician film shows considerable stool burden. 1643: Urinalysis shows no signs of infection, hematuria. Urine drug screen negative. Placed on bowel regimen of MiraLax, Bentyl, Zofran as needed with gastroenterology follow-up This patient was seen under the supervision of my secondary supervising physician. I evaluated care for this patient with attending. Discussed this patient with Dr. Talley. Differential Diagnosis: Abdominal pain including but not limited to appendicitis, cholecystitis, gastritis and urinary tract infection. - Data Points Laboratory Results: Laboratory Results 04/27/18 15:46 04/27/18 15:46 04/27/18 04/27/18 04/27/18 16:27 15:46 15:46 WBC 19.36 10^3/uL H 10^3/uL (3.80-9.50) RBC 4.83 10^6/uL 10^6/uL (4.40-6.38) Hgb 15.5 g/dL g/dL (13.7-17.5) Hct 45.4 % % (40.0-51.0) MCV 94.0 fL fL (81.5-99.8) MCH 32.1 pg pg (27.9-34.1) MCHC 34.1 g/dL g/dL (32.4-36.7) RDW 11.5 % % (11.5-15.2) Plt Count 208 10^3/uL 10^3/uL (150-400) MPV 9.5 fL fL (8.7-11.7) Neut % (Auto) 84.1 % H % (39.3-74.2) Lymph % (Auto) 5.8 % L % (15.0-45.0) [place] % (Auto) 9.0 % % (4.5-13.0) Eos % (Auto) 0.4 % L % (0.6-7.6) Baso % (Auto) 0.2 % L % (0.3-1.7) Nucleat RBC Rel Count 0.0 % % (0.0-0.2) Absolute Neuts (auto) 16.28 10^3/uL H 10^3/uL (1.70-6.50) Absolute Lymphs (auto) 1.12 10^3/uL 10^3/uL (1.00-3.00) Absolute Monos (auto) 1.74 10^3/uL H 10^3/uL (0.30-0.80) Absolute Eos (auto) 0.08 10^3/uL 10^3/uL (0.03-0.40) Absolute Basos (auto) 0.04 10^3/uL 10^3/uL (0.02-0.10) Absolute Nucleated RBC 0.00 10^3/uL 10^3/uL (0-0.01) Immature Gran % 0.5 % % (0.0-1.1) Immature Gran # 0.10 10^3/uL 10^3/uL (0.00-0.10) RBC/WBC/PLT Morphology TNP Platelet Estimate TNP Sodium 134 mEq/L L mEq/L (135-145) Potassium 3.8 mEq/L mEq/L (3.5-5.2) Chloride 100 mEq/L mEq/L (97-110) Carbon Dioxide 26 mEq/l mEq/l (22-31) Anion Gap 8 mEq/L mEq/L (6-14) BUN 16 mg/dL mg/dL (7-23) Creatinine 1.1 mg/dL mg/dL (0.7-1.3) Estimated GFR > 60 Glucose 106 mg/dL H mg/dL (70-100) Calcium 9.1 mg/dL mg/dL (8.5-10.4) Total Bilirubin 0.9 mg/dL mg/dL (0.1-1.4) Conjugated Bilirubin 0.2 mg/dL mg/dL (0.0-0.5) Unconjugated Bilirubin 0.7 mg/dL mg/dL (0.0-1.1) AST 20 IU/L IU/L (17-59) ALT 26 IU/L IU/L (21-72) Alkaline Phosphatase 88 IU/L IU/L (38-126) Total Protein 7.1 g/dL g/dL (6.3-8.2) Albumin 4.4 g/dL g/dL (3.5-5.0) Lipase 38 IU/L IU/L (23-300) Urine Color YELLOW Urine Appearance CLEAR Urine pH 6.0 (5.0-7.5) Ur Specific [place] 1.025 (1.002-1.030) Urine Protein NEGATIVE (NEGATIVE) Urine Ketones 1+ H (NEGATIVE) Urine Blood NEGATIVE (NEGATIVE) Urine Nitrate NEGATIVE (NEGATIVE) Urine Bilirubin NEGATIVE (NEGATIVE) Urine Urobilinogen NEGATIVE EU EU (0.2-1.0) Ur Leukocyte Esterase NEGATIVE (NEGATIVE) Urine Glucose NEGATIVE (NEGATIVE) Urine Opiates Screen NEGATIVE (NEGATIVE) Urine Barbiturates NEGATIVE (NEGATIVE) Ur Phencyclidine Scrn NEGATIVE (NEGATIVE) Ur Amphetamine Screen NEGATIVE (NEGATIVE) U Benzodiazepines Scrn NEGATIVE (NEGATIVE) Urine Cocaine Screen NEGATIVE (NEGATIVE) U Marijuana (THC) Screen NEGATIVE (NEGATIVE) Medications Given: Discontinued Medications Sodium Chloride (Ns) 1,000 mls @ 0 mls/hr IV EDNOW ONE; Wide Open PRN Reason: Protocol Stop: 04/27/18 15:46 Last Admin: 04/27/18 15:46 Dose: 1,000 mls Ketorolac Tromethamine (Toradol) 30 mg IVP EDNOW ONE Stop: 04/27/18 16:50 Last Admin: 04/27/18 16:55 Dose: 30 mg Ondansetron HCl (Zofran) 4 mg IVP EDNOW ONE Stop: 04/27/18 15:46 Last Admin: 04/27/18 15:46 Dose: 4 mg Departure - Departure Disposition: Home, Routine, Self-Care Clinical Impression: Abdominal pain, acute, left lower quadrant Condition: Good Instructions: Polyethylene Glycol 3350 (By mouth), Acute Abdominal Pain (ED) Additional Instructions: Consume a minimum of 8-10 glasses of water or electrolyte fluid replacement drinks that include Gatorade, Powerade, Pedialyte. Eat a bland diet for the next 48 hours and then slowly advance as tolerated. Take Zofran 1 tab every 4 hours as needed for nausea, vomiting. Take MiraLax daily as needed for constipation. Take Bentyl every 6 hr as needed for GI distress. Follow-up with Gastroenterology if symptoms do not resolve in the next 72 hours. Referrals: Glenn Trimble MD, FACG [Medical Doctor] - As per Instructions Prescriptions: Dicyclomine [Bentyl 20 MG (*)] 20 mg PO QID PRN #12 tab PRN Reason: Gi Distress Ondansetron Odt [Zofran Odt 4 mg (*)] 4 mg PO Q4 PRN #12 tab PRN Reason: Nausea/Vomiting, Use 1st
[2018-04-27 16:01] LABS: PLATELET COUNT 208 10^3/uL (150-400)
[2018-04-27] MEDS ORDERED: KETOROLAC 30 MG/1 ML SDV IVP ONE (16:49)
[2018-04-27] MEDS ORDERED: KETOROLAC 15 MG/1 ML SDV ONE (16:52)
[2018-04-27 17:17] VITALS: BP 132/86
== END 2018-04-27 17:17 | disposition home or self-care (01) ==
DX: R10.32 Left lower quadrant pain (principal); E86.9 Volume depletion, unspecified
CPT/HCPCS: 80305; 96374; J1885; J2405